=== PATIENT | male | born 1980 | race Caucasian/White ===

== ENCOUNTER 2024-10-14 18:55 | Outpatient (CLI) | payer MEDICAID, SELFPAY | END 2024-10-14 18:56 | disposition home or self-care (01) | LOC: NFLDREF 10-16 02:41 | PROVIDERS: Visit Provider Physician Assistant | DX: L03.115 Cellulitis of right lower limb (principal); L03.116 Cellulitis of left lower limb; L03.313 Cellulitis of chest wall; L03.811 Cellulitis of head [any part, except face]; B95.0 Streptococcus, group A, as the cause of diseases classified elsewhere; B95.61 Methicillin susceptible Staphylococcus aureus infection as the cause of diseases classified elsewhere | CPT/HCPCS: 87070; 87186 ==